=== PATIENT | female | born 2000 | race Two or more races ===

== ENCOUNTER → 2025-06-11 | Outpatient (CLI) | payer OTHER | LOC: M WHC 09:58 | PROVIDERS: ATTEND Physician Assistant | DX: N63.24 Unspecified lump in the left breast, lower inner quadrant (principal); N64.4 Mastodynia; N64.3 Galactorrhea not associated with childbirth ==

== ENCOUNTER → 2025-06-17 | Outpatient (CLI) | payer OTHER | LOC: M PLALAB 10:21 | PROVIDERS: ATTEND Physician Assistant | DX: Z13.79 Encounter for other screening for genetic and chromosomal anomalies (principal); Z80.3 Family history of malignant neoplasm of breast ==